=== PATIENT | female | born 1950 | race Caucasian/White ===

== ENCOUNTER → 2023-03-24 12:04 | Outpatient (REF) | payer MEDICARE, OTHER, SELFPAY ==
[2023-03-24 13:23] LABS: % Basophils 0.4 % (0-2); % Eosinophils 1.6 % (0-6); % Immature Granulocytes 0.4 % (0-0.5); % Lymphocytes 27.1 % (20.5-51.1); % Monocytes 7.8 % (1.7-9.3); % Neutrophils 62.7 % (42.2-75.2); Absolute Eosinophils 0.1 10^3/uL (0-0.7); Absolute Lymphocytes 2.2 10^3/uL (1.2-3.4); Absolute Monocytes 0.6 10^3/uL (0.1-0.6); Absolute Neutrophils 5.1 10^3/uL (1.4-6.5); Hematocrit 45.6 % (37.0-47.0); Hemoglobin 15.1 g/dL (12.0-16.0); Mean Corp Hgb Conc. 33.1 g/dL (33.0-37.0); Mean Corpuscular Volume 96.6 fL (81.0-99.0); Mean Platelet Volume 9.6 fL (7.4-10.4); Nucleated Red Blood Cells % 0 %; Platelet Count 245 10^3/uL (130-400); Red Blood Cell Count 4.72 10^6/uL (4.20-5.40); Red Cell Dist. Width 13.3 % (11.5-14.5); White Blood Cell Count 8.1 10^3/uL (4.8-10.8)
[2023-03-24 13:49] LABS: NT-proBNP 826 pg/ml
[2023-03-24 13:57] LABS: ALT (SGPT) 18 U/L (0-35); AST (SGOT) 26 U/L (14-36); Albumin 4.1 g/dl (3.5-5.0); Alkaline Phosphatase 132 U/L (38-126); Blood Urea Nitrogen 22 mg/dl (7-17); Calcium 9.2 mg/dl (8.4-10.2); Carbon Dioxide 26 mmol/L (22-30); Chloride 103 mmol/L (98-107); Glucose 190 mg/dl (70-99); LDH 209 U/L (120-246); Potassium 4.3 mmol/L (3.5-5.1); Sodium 138 mmol/L (135-145); Total Bilirubin 0.8 mg/dl (0.2-1.3); eGFR > 60.00
[2023-03-24 14:26] LABS: TSH Reflex To Free T4 1.26 uIU/ml (0.47-4.68)
[2023-03-26 20:33] LABS: CA 27-29 18.1 U/mL (<=39.0)
== END ==
LOC: REG 12:04
PROVIDERS: ATTENDING PHYSICIAN Internal Medicine Cardiovascular Disease; FAMILY PHYSICIAN Dermatology; REFERRING PHYSICIAN Internal Medicine Hematology & Oncology
DX: C50.911 Malignant neoplasm of unspecified site of right female breast (principal); R06.09 Other forms of dyspnea; I50.20 Unspecified systolic (congestive) heart failure; Z85.820 Personal history of malignant melanoma of skin
CPT/HCPCS: 36415; 80053; 83615; 83735; 83880; 84443; 85025; 86300

== ENCOUNTER → 2023-04-14 09:00 | Outpatient (REF) | payer MEDICARE, OTHER, SELFPAY | LOC: MRI 09:00 | PROVIDERS: ATTENDING PHYSICIAN Podiatrist Foot Surgery; FAMILY PHYSICIAN Internal Medicine Geriatric Medicine | DX: M86.9 Osteomyelitis, unspecified (principal) | CPT/HCPCS: 73718 ==

== ENCOUNTER → 2023-04-20 11:11 | Outpatient (REF) | payer MEDICARE, OTHER, SELFPAY | LOC: WDC 11:11 | PROVIDERS: ATTENDING PHYSICIAN Internal Medicine Hematology & Oncology; FAMILY PHYSICIAN Internal Medicine Geriatric Medicine | DX: Z12.31 Encounter for screening mammogram for malignant neoplasm of breast (principal) | CPT/HCPCS: 77063; 77067 ==

== ENCOUNTER → 2023-06-15 13:45 | Outpatient (REF) | payer MEDICARE, OTHER, SELFPAY | LOC: RCS 13:45 | PROVIDERS: ATTENDING PHYSICIAN Internal Medicine Cardiovascular Disease; FAMILY PHYSICIAN Internal Medicine Geriatric Medicine | DX: R06.09 Other forms of dyspnea (principal); I50.22 Chronic systolic (congestive) heart failure | CPT/HCPCS: 93306 ==

== ENCOUNTER → 2023-12-17 06:21 | Day surgery (SDC) | payer MEDICARE, OTHER, SELFPAY ==
[2023-12-17 08:02] LABS: Glucose - Point of Care 176 mg/dl (70-99)
== END ==
LOC: GI 06:21
PROVIDERS: ATTENDING PHYSICIAN Internal Medicine Gastroenterology
DX: K22.89 Other specified disease of esophagus (principal); Q39.9 Congenital malformation of esophagus, unspecified; K22.70 Barrett's esophagus without dysplasia
CPT/HCPCS: 43239; 88305; 82962

== ENCOUNTER → 2023-12-21 09:27 | Outpatient (REF) | payer MEDICARE, OTHER, SELFPAY ==
[2023-12-21 13:00] LABS: % Basophils 0.1 % (0-2); % Eosinophils 1.6 % (0-6); % Immature Granulocytes 0.3 % (0-0.5); % Lymphocytes 27.3 % (20.5-51.1); % Neutrophils 63.7 % (42.2-75.2); Absolute Eosinophils 0.1 10^3/uL (0-0.7); Absolute Monocytes 0.5 10^3/uL (0.1-0.6); Absolute Neutrophils 4.7 10^3/uL (1.4-6.5); Hematocrit 44.9 % (37.0-47.0); Hemoglobin 15.4 g/dL (12.0-16.0); Mean Corp Hgb Conc. 34.3 g/dL (33.0-37.0); Mean Corpuscular Hgb 31.8 pg (27.0-31.0); Mean Corpuscular Volume 92.8 fL (81.0-99.0); Mean Platelet Volume 9.5 fL (7.4-10.4); Nucleated Red Blood Cells % 0 %; Platelet Count 165 10^3/uL (130-400); Red Blood Cell Count 4.84 10^6/uL (4.20-5.40); Red Cell Dist. Width 12.8 % (11.5-14.5); White Blood Cell Count 7.4 10^3/uL (4.8-10.8)
[2023-12-21 13:24] LABS: ALT (SGPT) 23 U/L (0-35); AST (SGOT) 28 U/L (14-36); Albumin 4.5 g/dl (3.5-5.0); Alkaline Phosphatase 110 U/L (38-126); Blood Urea Nitrogen 24 mg/dl (7-17); Calcium 9.5 mg/dl (8.4-10.2); Carbon Dioxide 26 mmol/L (22-30); Chloride 102 mmol/L (98-107); Glucose 161 mg/dl (70-99); HDL Cholesterol 77 mg/dl; LDL Cholesterol, Calculated 54 mg/dl; Phosphorus 3.9 mg/dl (2.5-4.5); Potassium 4.3 mmol/L (3.5-5.1); Sodium 145 mmol/L (135-145); Total Bilirubin 0.7 mg/dl (0.2-1.3); Total Cholesterol 152 mg/dl (50-199); Total Protein 7.4 g/dl (6.3-8.2); Triglyceride 107 mg/dl (10-149); Very Low Density Lipoprotein 21 mg/dl (0-30); eGFR 59.86
[2023-12-21 13:39] LABS: Vitamin D, 25-OH*** 33.6 ng/mL (30-80)
[2023-12-21 14:22] LABS: Urine Albumin Trace (Neg - Trace); Urine Bilirubin Negative (Negative); Urine Character Clear (Clear); Urine Color Yellow; Urine Glucose 3+ (Negative); Urine Ketone Negative (Negative); Urine Leukocyte Negative (Negative); Urine Nitrite Negative (Negative); Urine Occult Blood Negative (Negative); Urine Specific Gravity 1.015 (<1.030); Urine Urobilinogen Negative (Neg - 1+)
[2023-12-22 11:43] LABS: Glycohemoglobin (HgbA1c) 8.1 % (4.0-5.6)
== END ==
LOC: RCS 09:27
PROVIDERS: ATTENDING PHYSICIAN Internal Medicine Cardiovascular Disease; FAMILY PHYSICIAN Internal Medicine Geriatric Medicine
DX: R06.09 Other forms of dyspnea (principal); I50.22 Chronic systolic (congestive) heart failure; Z00.00 Encounter for general adult medical examination without abnormal findings; J44.9 Chronic obstructive pulmonary disease, unspecified; E11.59 Type 2 diabetes mellitus with other circulatory complications; I10 Essential (primary) hypertension; E11.65 Type 2 diabetes mellitus with hyperglycemia; Z13.31 Encounter for screening for depression; E78.2 Mixed hyperlipidemia; E03.9 Hypothyroidism, unspecified; R53.82 Chronic fatigue, unspecified; K21.9 Gastro-esophageal reflux disease without esophagitis; R07.89 Other chest pain; M48.062 Spinal stenosis, lumbar region with neurogenic claudication; E11.42 Type 2 diabetes mellitus with diabetic polyneuropathy; E11.40 Type 2 diabetes mellitus with diabetic neuropathy, unspecified; R26.9 Unspecified abnormalities of gait and mobility; Z23 Encounter for immunization; Z91.89 Other specified personal risk factors, not elsewhere classified; Z79.899 Other long term (current) drug therapy
CPT/HCPCS: 36415; 80053; 80061; 81003; 82306; 83036; 84100; 85025; 93306; Q9950

== ENCOUNTER 2024-04-02 10:20 | Emergency (ER) | payer MEDICARE, OTHER, SELFPAY ==
[2024-04-02 10:23] VITALS: BP 135/72
--- NOTE | 2024-04-02 11:44 | ED.GENMED ---
History of Present Illness
General
Chief Complaint: Fall
Source: patient
Time Seen by Provider: 04/02/24 11:31
History of Present Illness
History of Present Illness:
73-year-old female presents to the emergency room complaining of feeling tired, falling asleep easily, falling easily. Patient's been feeling unwell for the past 2 to 3 months. She denies any fever, chills, cough. She denies any change in
medication. Patient states that she has fallen several times due to feeling a bit off balance. She did strike her head recently on the left forehead. Patient also feels tired all the time and has been falling asleep while seated. She is
diagnosed with sleep apnea and does have a CPAP machine but has not been using it. She also endorses working long hours getting up early in the morning. No nausea, vomiting or diarrhea.
Past History
Past History
ED Past Medical History: Arrthythmia, Cancer (breast), CHF, HTN, Hypercholesterolemia and NIDDM
ED Past Surgical History: Gynecological, Orthopedic and Other
Social History
Tobacco: Non-smoker
Phy Exam
Physical Exam
Physical Exam:
General: Awake, Alert, Oriented X3. No acute distress.
Vitals: Abrasion left forehead
Head: Atraumatic
Eyes: Pupils equal, EOMI
Throat: Airway intact, no exudates
Neck: Trachea midline
Lungs: Clear and equal b/l
Heart: Regular rate, no murmurs
Abd: Soft, Nontender, No pulsatile mass
Neuro: Cranial nerves intact, muscle strength equal bilaterally
Skin: Warm, dry, no rash
Extremities: pulses equal b/l, no edema
Course
Orders/Labs/Results
Orders:
Orders
04/02/24 11:46
CT Head W/o Iv Contrast Urgent
Comment:
Reason For Exam: frequent falls
04/02/24 11:50
Electrocardiogram (*1) Urgent
Reason for Study: Fatigue / Weakness
EKG- Treatment ONCE
04/02/24 12:03
Complete Blood Count/With Diff Urgent
Comprehensive Metabolic Panel Urgent
TSH Reflex To Free T4 Urgent
Urinalysis Reflex To Culture Urgent
Date Specimen was Collected: 04/02/24
Time Specimen was Collected: 12:00
Urine Microscopic Reflex Cult Urgent
Urine Culture Urgent
CHRIS Source: U
Specimen Description:
Date Specimen was Collected: 04/02/24
Time Specimen was Collected: 12:00
04/02/24 13:54
Fosfomycin [Monurol] 3 gm PO ONCE ONE
Abnormal Lab Results
04/02/24
12:03
RBC 4.19 L 10^6/uL
(4.20-5.40)
MCH 32.5 H pg
(27.0-31.0)
MCHC 32.9 L g/dL
(33.0-37.0)
Monocytes % 9.6 H %
(1.7-9.3)
BUN 18 H mg/dl
(7-17)
Total Protein 6.2 L g/dl
(6.3-8.2)
Leukocyte Esterase Rfl 2+ A
(Negative)
Urine RBC 7-10 A /HPF
(0-2)
Urine WBC (Reflex) >100 A /HPF
(0-5)
Urine Bacteria (Reflex) Moderate A
(Negative)
Urine Glucose 4+ A
(Negative)
04/02/24 12:03
04/02/24 12:03
Vital Signs
Initial and Last Documented VS:
Initial Vital Signs
Temp Pulse Resp BP Pulse Ox
98.0 F 72 18 135/72 96
04/02/24 10:23 04/02/24 10:23 04/02/24 10:23 04/02/24 10:23 04/02/24 10:23
Last Documented Vital Signs
Temp Pulse Resp BP Pulse Ox
98.0 F 72 18 135/72 96
04/02/24 10:23 04/02/24 10:23 04/02/24 10:23 04/02/24 10:23 04/02/24 10:23
MDM/Problems Addressed
Differential Diagnosis Includes:
UTI, dehydration, electrolyte abnormality
MDM/Problems Addressed:
Patient presents with multiple complaints. Per main issue appears to be fatigue noted sleeping a lot. Workup revealed a suspected urinary tract infection. She has greater than 100 WBCs per high-power field on microscopic evaluation. She does
also have a fair number of squamous cells with greater than 30 per high-power field but given that number of white blood cells I think this is truly a urinary tract infection. Patient given a dose of Monurol. Stable for discharge home
*Radiology
Radiology exam reviewed: radiology read reviewed
*Pulse Oximetry
Patient hypoxic: no
*EKG
Interpreted by ED Provider?: Yes
Heart Rate: 72
Rate: normal
Rhythm: av sequential
Ischemia: non-specific ST changes
*Modern Dancer Interpretation
Rate: normal
Rhythm: av sequential
*Critical Care Note
Total Time (30-74mins, 75-104mins- exclusive of procedures): Not Applicable
ED Attending Note
-
Portions of this chart may have been created with voice recognition software.� Occasional wrong word or��sound alike� substitutions may have occurred due to the inherent limitations of voice recognition software.
Discharge Plan
Departure
Patient Disposition: Home (Routine Discharge)
Date of Disposition: 04/02/24
Time of Disposition: 13:54
Patient with high blood pressure during this ER visit?: No
Condition: Good
Discharge Problem:
Acute UTI, Head injury
Instructions: Urinary tract infections in adults, Head Injury in Adults (DC)
Prescriptions:
No Action
duloxetine 60 MG capsule,delayed release(DR/EC)
120 mg PO DAILY
cyanocobalamin (vitamin B-12) 1,000 MCG tablet
1,000 mcg PO DAILY Qty: 0
pyridoxine (vitamin B6) 50 MG tablet
50 mg PO BID Qty: 0
letrozole 2.5 MG tablet
2.5 mg PO DAILY
loratadine 10 MG tablet
10 mg PO DAILY
magnesium [magnesium gluconate] 200 MG tablet
500 mg PO DAILY
bupropion HCl 150 MG tablet extended release 24 hr
150 mg PO DAILY
alpha lipoic acid 200 MG capsule
200 mg PO BID
empagliflozin [Jardiance] 25 MG tablet
25 mg PO DAILY
cholecalciferol (vitamin D3) 1,000 UNITS tablet
1,000 units PO BID Qty: 0
amiodarone [Pacerone] 200 MG tablet
200 mg PO DAILY 30 Days Qty: 30 0RF
apixaban [Eliquis] 5 MG tablet
5 mg PO BID 30 Days Qty: 60 0RF
levothyroxine 25 MCG tablet
25 mcg PO DAILY
candesartan 16 MG tablet
32 mg PO DAILY
gabapentin 100 MG capsule
100 mg PO HS
bupropion HCl 150 MG tablet extended release 24 hr
300 mg PO QPM
coenzyme [id number] E 1 CAP capsule
200 mg PO QPM
oxybutynin chloride 5 MG tablet extended release 24hr
5 mg PO DAILY
omeprazole 20 MG capsule,delayed release(DR/EC)
20 mg PO BID
eplerenone [Inspra] 25 MG tablet
25 mg PO DAILY
tramadol [Ultram] 50 MG tablet
50 mg PO PRN PRN (Reason: pain)
alprazolam 0.5 MG tablet
0.5 mg PO Q6HPRN PRN (Reason: anxiety)
insulin glargine [Lantus U-100 Insulin] 1,000 UNITS/10 ML solution
20 units SC HS 30 Days Qty: 5 0RF
insulin aspart U-100 [Novolog FlexPen U-100 Insulin] 300 UNITS/3 ML insulin pen
3 units SC AC 30 Days Qty: 10 0RF
carvedilol 12.5 MG tablet
25 mg PO BID 30 Days Qty: 60 0RF
(DME) blood-glucose meter [OneTouch Verio Meter] 1 EACH misc
1 ea MC DIRECTED Qty: 1 0RF
(DME) blood sugar diagnostic [Accu-Chek Guide test strips] 1 EACH strip
1 ea MC ACHS Qty: 200 0RF
(DME) lancets [Accu-Chek Fastclix Lancet Drum] 1 EACH misc
1 ea MC ACHS Qty: 200 0RF
(DME) pen needle, diabetic [BD Ultra-Fine Micro Pen Needle] 1 EACH needle
1 ea MC ACHS Qty: 200 0RF
Rx Instructions:
BD CALDERON 4mm pen needle
(DME) pen needle, diabetic [BD Ultra-Fine Micro Pen Needle] 1 EACH needle
1 ea MC DAILY Qty: 100 0RF
Rx Instructions:
BD CALDERON 4mm pen needle
Referrals:
Mahendra Kuhn MD [Family Provider] -
Stand Alone Forms: Return to Work
Activity Restrictions/Additional Instructions:
It appears that you have a urinary tract infection. We gave you a dose of the medication here which will last in your system for several days so there is no need for any further doses. Follow-up with Dr. Leon.
Interventions
Interventions:
*Risk Screen - Suicide Last Done: 04/02/24 14:14
*General Assessment Last Done: 04/02/24 14:14
*Neglect/Abuse Screening Last Done: 04/02/24 14:14
ED- Fall Risk Assessment Last Done: 04/02/24 14:18
*ED COVID-19 Vaccine History Last Done: 04/02/24 14:18
*Nursing Disposition Last Done: 04/02/24 14:18
ED-Musculoskeletal Assessment Last Done: 04/02/24 14:18
ED- Neurological Assessment Last Done: 04/02/24 14:18
ED-Skin Assessment Last Done: 04/02/24 14:18
Discharge Date and Time
Discharge Date/Time: 04/02/24 14:19
Print Language: [place]
[2024-04-02 12:27] LABS: Urine Albumin Negative (Neg - Trace); Urine Bilirubin Negative (Negative); Urine Character Clear (Clear); Urine Color Yellow; Urine Glucose 4+ (Negative); Urine Ketone Negative (Negative); Urine Leukocyte 2+ (Negative); Urine Nitrite Negative (Negative); Urine Occult Blood Negative (Negative); Urine Urobilinogen Negative (Neg - 1+)
[2024-04-02 12:40] LABS: Urine Squamous Cell >30 /LPF (Few)
[2024-04-02 12:43] LABS: Urine White Cell >100 /HPF (0-5)
[2024-04-02 12:45] LABS: Urine Bacteria Moderate (Negative)
[2024-04-02 12:54] LABS: % Basophils 0.3 % (0-2); % Eosinophils 1.3 % (0-6); % Immature Granulocytes 0.2 % (0-0.5); % Lymphocytes 29.8 % (20.5-51.1); % Monocytes 9.6 % (1.7-9.3); % Neutrophils 58.8 % (42.2-75.2); Absolute Eosinophils 0.1 10^3/uL (0-0.7); Absolute Lymphocytes 1.9 10^3/uL (1.2-3.4); Absolute Monocytes 0.6 10^3/uL (0.1-0.6); Absolute Neutrophils 3.7 10^3/uL (1.4-6.5); Hematocrit 41.4 % (37.0-47.0); Hemoglobin 13.6 g/dL (12.0-16.0); Mean Corp Hgb Conc. 32.9 g/dL (33.0-37.0); Mean Corpuscular Hgb 32.5 pg (27.0-31.0); Mean Corpuscular Volume 98.8 fL (81.0-99.0); Mean Platelet Volume 8.7 fL (7.4-10.4); Nucleated Red Blood Cells % 0 %; Platelet Count 191 10^3/uL (130-400); Red Blood Cell Count 4.19 10^6/uL (4.20-5.40); White Blood Cell Count 6.3 10^3/uL (4.8-10.8)
[2024-04-02 13:05] LABS: ALT (SGPT) 20 U/L (0-35); AST (SGOT) 25 U/L (14-36); Albumin 3.6 g/dl (3.5-5.0); Alkaline Phosphatase 86 U/L (38-126); Blood Urea Nitrogen 18 mg/dl (7-17); Carbon Dioxide 30 mmol/L (22-30); Chloride 104 mmol/L (98-107); Glucose 83 mg/dl (70-99); Potassium 3.8 mmol/L (3.5-5.1); Sodium 140 mmol/L (135-145); Total Bilirubin 0.6 mg/dl (0.2-1.3); Total Protein 6.2 g/dl (6.3-8.2); eGFR 59.86
[2024-04-02 13:10] LABS: TSH Reflex To Free T4 4.04 uIU/ml (0.47-4.68)
[2024-04-02] MEDS: MONUROL 3 GM PO (14:05)
== END 2024-04-02 14:19 | disposition home or self-care (01) ==
LOC: EMR 10:20
PROVIDERS: EMERGENCY PHYSICIAN Emergency Medicine; FAMILY PHYSICIAN Internal Medicine Geriatric Medicine
DX: S09.90XA Unspecified injury of head, initial encounter (principal); N39.0 Urinary tract infection, site not specified; W22.09XA Striking against other stationary object, initial encounter; R29.6 Repeated falls; G47.30 Sleep apnea, unspecified
CPT/HCPCS: 99285; 70450; 80053; 81003; 81015; 84443; 85025; 87086; 93005

== ENCOUNTER → 2024-04-25 09:01 | Outpatient (REF) | payer MEDICARE, OTHER, SELFPAY | LOC: HWWDC 09:01 | PROVIDERS: ATTENDING PHYSICIAN Nurse Practitioner Primary Care; FAMILY PHYSICIAN Internal Medicine Geriatric Medicine; REFERRING PHYSICIAN Obstetrics & Gynecology | DX: Z12.31 Encounter for screening mammogram for malignant neoplasm of breast (principal) | CPT/HCPCS: 77063; 77067 ==

== ENCOUNTER 2024-06-28 06:19 | Day surgery (SDC) | payer MEDICARE, OTHER, SELFPAY ==
[2024-06-28 07:28] LABS: Glucose - Point of Care 130 mg/dl (70-99)
== END 2024-06-28 09:08 | disposition home or self-care (01) ==
LOC: GI 06:19
PROVIDERS: ATTENDING PHYSICIAN Internal Medicine Gastroenterology; FAMILY PHYSICIAN Internal Medicine Geriatric Medicine
DX: Z12.11 Encounter for screening for malignant neoplasm of colon (principal); D12.2 Benign neoplasm of ascending colon; D12.3 Benign neoplasm of transverse colon; D12.4 Benign neoplasm of descending colon; K57.30 Diverticulosis of large intestine without perforation or abscess without bleeding; K64.8 Other hemorrhoids; Z80.0 Family history of malignant neoplasm of digestive organs; Z79.01 Long term (current) use of anticoagulants
CPT/HCPCS: 45380; 88305; 82962

== ENCOUNTER → 2025-01-09 13:09 | Outpatient (REF) | payer MEDICARE, OTHER, SELFPAY ==
[2025-01-09 15:13] LABS: Hematocrit 48.5 % (37.0-47.0); Hemoglobin 15.4 g/dL (12.0-16.0); Mean Corp Hgb Conc. 31.8 g/dL (33.0-37.0); Mean Corpuscular Volume 99.4 fL (81.0-99.0); Nucleated Red Blood Cells % 0 %; Platelet Count 213 10^3/uL (130-400); Red Cell Dist. Width 12.5 % (11.5-14.5)
[2025-01-09 15:16] LABS: ALT (SGPT) 19 U/L (0-35); AST (SGOT) 24 U/L (14-36); Albumin 4.3 g/dl (3.5-5.0); Alkaline Phosphatase 119 U/L (38-126); Blood Urea Nitrogen 20 mg/dl (7-17); Calcium 9.4 mg/dl (8.4-10.2); Carbon Dioxide 29 mmol/L (22-30); Chloride 101 mmol/L (98-107); Glucose 165 mg/dl (70-99); HDL Cholesterol 65 mg/dl; LDL Cholesterol, Calculated 65 mg/dl; Potassium 4.1 mmol/L (3.5-5.1); Sodium 138 mmol/L (135-145); Total Protein 7.4 g/dl (6.3-8.2); Very Low Density Lipoprotein 21 mg/dl (0-30); eGFR 59.49
[2025-01-09 15:47] LABS: TSH 3.96 uIU/ml (0.47-4.68)
== END ==
LOC: REG 13:09
PROVIDERS: ATTENDING PHYSICIAN Internal Medicine Cardiovascular Disease; FAMILY PHYSICIAN Internal Medicine Geriatric Medicine
DX: I50.22 Chronic systolic (congestive) heart failure (principal); E78.2 Mixed hyperlipidemia; Z79.899 Other long term (current) drug therapy
CPT/HCPCS: 36415; 80053; 80061; 83880; 84439; 84443; 85025

== ENCOUNTER 2025-01-16 10:29 | Day surgery (SDC) | payer MEDICARE, OTHER, SELFPAY ==
[2025-01-16] VITALS (7 sets, daily range): BP systolic 110–135; BP diastolic 58–84
[2025-01-16 11:10] LABS: Glucose - Point of Care 163 mg/dl (70-99)
[2025-01-16] MEDS: VANCOCIN 530 MG IV (12:22)
--- NOTE | 2025-01-16 12:45 | W.ICD.CONTRA ---
Post ICD/MARKETING PRODUCTION COORDINATOR-D
-
History of PA?: No
LV Function
Left ventricular function study result?: Ejection Fraction </= 35%
ACEI/ARB/ARNI
Patient already on ACEI/ARB/ARNI: Yes
Beta-Devin
Patient already on Beta Devin: Yes
--- NOTE | 2025-01-16 14:25 | ITS.CL.ICD ---
[employer] Receptionist - ICD
Implantable Cardioverter Defibrillator
Procedure Report:
ICD GENERATOR CHANGE REPORT
Date of Procedure: January 16, 2025
Primary Care Provider: Dr Geovany Kuhn
Primary child care provider: Dr Maritza Wylie
PROCEDURES:
1. Removal of ICD Generator, 2. ICD Implant
HISTORY:
ICD at battery depletion/replacement indices
NYHA class 3
Duration of HF 7 years despite guideline directed medical therapy at maximally tolerated doses
Cardiomyopathy type Non-Infarction based. LVEF 30-35%. Global hypokinesis
LBBB
Primary prevention
Life expectancy > 1 year
'Time-out' was called and confirmed. The patient was prepped and draped in sterile fashion. Lidocaine with epi was used for local anesthesia. An incision was made along the previous incision and the device and leads were carefully dissected from
the pocket. Hemostasis was obtained with electrocautery. The leads were from the device header and tested using an external analyzer. The pocket was liberally irrigated with antibiotic solution. Once testing (see below) showed adequate
and stable function, the leads were connected to the generator header and the leads and generator were placed within the pocket. The pocket was closed in the typical fashion.
Antibiotic pouch placed.
EXISTING ICD Medtronic
IMPLANTED ICD: MEDTRONIC [id number], [id number]
EXISTING LEADS:
RA Medtronic 5076, SN PJN [id number]
RV Medtronic 6935M, SN TDL [id number]
LV Medtronic 4298, SN DAKSHA [id number]
DEVICE TESTING:
Sensing: RA 1.6 mV, RV 7 mV,
Capture: RA 0.75 V@ 0.4 ms, RV 0.75 V@ 0.4 ms, LV 2.9 V@ 0.6 ms,
Ohms: RA 361, RV 340, LV 798
FINAL PROGRAMMING:
Murtaza Pacing: DDD 50-130 ppm
Tachy parameters:
VF: 188 bpm, ATP while charging, Shock
CONCLUSIONS:
1. Explant of ICD at [employer]placement Indices
2. Successful implant ICD generator.
3. Normal function of ICD and leads at implant testing.
RECOMMENDATIONS:
1. Observation and consideration for discharge home later today.
2. In-Office wound check in 7 - 10 days.
Copy to:
Primary Care Provider: Dr Geovany Kuhn
Primary child care provider: Dr Maritza Wylie
[2025-01-16] MEDS: AZACTAM 2000 MG IV (14:27)
== END 2025-01-16 15:06 | disposition home or self-care (01) ==
LOC: CATH 10:29
PROVIDERS: ATTENDING PHYSICIAN Internal Medicine Cardiovascular Disease; FAMILY PHYSICIAN Internal Medicine Geriatric Medicine; OTHER PHYSICIAN Internal Medicine Cardiovascular Disease
DX: Z45.02 Encounter for adjustment and management of automatic implantable cardiac defibrillator (principal); I42.9 Cardiomyopathy, unspecified; I44.7 Left bundle-branch block, unspecified; Z88.0 Allergy status to penicillin; Z88.1 Allergy status to other antibiotic agents; Z88.5 Allergy status to narcotic agent; Z91.048 Other nonmedicinal substance allergy status; Z79.4 Long term (current) use of insulin; Z79.899 Other long term (current) drug therapy; Z79.890 Hormone replacement therapy; Z79.01 Long term (current) use of anticoagulants; Z79.85 Long-term (current) use of injectable non-insulin antidiabetic drugs
CPT/HCPCS: 33264; 82962; C1882